=== PATIENT | male | born 1955 | race Caucasian/White ===

== ENCOUNTER → 2017-03-25 | Outpatient (CLI) | payer BC ==
[~2017-03-25] MED LIST: CHEWABLE ASPIRI81 M1 PO; CRESTOR20 MG PO; DIOVAN80 MG OR; METOPROLOL25 MG PO; OMEPRAZOLE20 M1 PO; VICODIN 5/500 T1 TAB PO
[2017-03-25 11:31] LABS: HEMOGLOBIN 15.6 g/dL (14.1-18.0); LYMPH # 1.7 K/mm3 (0.7-4.5); LYMPH % 27.1 % (10-50)
--- NOTE | 2017-03-25 12:10 | RADIOLOGY REPORT PS360 ---
EXAM: LUMBAR SPINE 5 VIEWS HISTORY: ACUTE LEFT SIDED LOW BACK PAIN WITH LEFT SCIATICA ORDERING PHYSICIAN: Ellis German MD PATIENT AGE: 61 years COMPARISON: None FINDINGS: Normal alignment. No fracture or dislocation. No lytic or blastic change. Mild degenerative disc disease L4-L5 and L5-S1 with mild facet hypertrophic changes at L4-5 and L5-S1. There are mild hypertrophic changes of the right SI joint inferiorly. IMPRESSION: Mild lumbar spondylosis with no acute finding
[2017-03-25 14:01] LABS: BUN 17 mg/dL (7-18)
[2017-03-25 14:07] LABS: GFR (ESTIMATED) 68 ML/MIN (>60)
== END ==
LOC: LAB 11:00
PROVIDERS: Internal Medicine Adolescent Medicine
DX: E78.5 Hyperlipidemia, unspecified (principal); E11.9 Type 2 diabetes mellitus without complications; I25.10 Atherosclerotic heart disease of native coronary artery without angina pectoris; E03.9 Hypothyroidism, unspecified; M54.42 Lumbago with sciatica, left side

== ENCOUNTER → 2017-04-20 | Outpatient (CLI) | payer BC ==
--- NOTE | 2017-04-20 17:17 | RADIOLOGY REPORT PS360 ---
KNEE-3 VIEWS-LT HISTORY: Left knee pain LEFT MEDIAL KNEE PAIN ORDERING PHYSICIAN: DAVID GARAY APRN PATIENT AGE: 61 years COMPARISON: None FINDINGS: No fracture or dislocation. No lytic or blastic change. Normal mineralization. No significant arthritic changes evident. No other significant findings IMPRESSION: Negative Knee
== END ==
LOC: RAD 16:16
DX: M25.562 Pain in left knee (principal)